=== PATIENT | female | born 2000 | race Caucasian/White ===

== ENCOUNTER → 2021-08-18 | Outpatient (CLI) | payer OTHER ==
--- NOTE | 2021-08-18 11:52 | Diagnostic Imaging Report ---
INDICATION: Pain and swelling to the right ankle. TIME OF EXAM: 11:39 a.m. TECHNIQUE: Three views of the right ankle were obtained. FINDINGS: Alignment is normal. Ankle mortise is well maintained. Talar dome is smooth. No fracture dislocation is seen. There does appear to be a probable ankle joint effusion on the lateral view. IMPRESSION: Ankle joint effusion. No acute bony abnormality is detected. Dictated by: Dictated on workstation # [id number]
== END ==
LOC: RAD 11:14
PROVIDERS: ATTEND Internal Medicine
DX: S93.401A Sprain of unspecified ligament of right ankle, initial encounter (principal); X58.XXXA Exposure to other specified factors, initial encounter
CPT/HCPCS: 73610